=== PATIENT | female | born 1950 | race Hispanic/Latino ===

== ENCOUNTER → 2020-02-13 | Outpatient (CLI) | payer OTHER | END | disposition home or self-care (01) | LOC: RAH 13:52 | PROVIDERS: ATTEND Internal Medicine | DX: N63.41 Unspecified lump in right breast, subareolar (principal); Z78.0 Asymptomatic menopausal state | CPT/HCPCS: 77066 ==

== ENCOUNTER → 2020-02-28 | Outpatient (CLI) | payer OTHER | END | disposition home or self-care (01) | LOC: RAH 07:42 | PROVIDERS: ATTEND Internal Medicine | DX: R92.8 Other abnormal and inconclusive findings on diagnostic imaging of breast (principal) | CPT/HCPCS: 76641 ==